=== PATIENT | female | born 1990 | race Caucasian/White ===

== ENCOUNTER → 2021-03-17 09:35 | Outpatient (CLI) | payer SELFPAY | PROVIDERS: PCP Internal Medicine; Referring Provider Internal Medicine; Visit Provider Internal Medicine | DX: R00.2 Palpitations (principal) | CPT/HCPCS: 93225; 93226 ==

== ENCOUNTER 2022-04-14 17:16 | Emergency (ER) | payer SELFPAY ==
[2022-04-14 17:18] VITALS: BP 138/88; PULSE 87; RESP 16; TEMP 36.7; O2SAT 98; BMI 30.7
--- NOTE | 2022-04-14 17:32 | NURSING ---
NO OLD EKGS
--- NOTE | 2022-04-14 18:13 | EKG12_ITS ---
Test Reason : DYSRHYTHMIA Blood Pressure : / mmHG Vent. Rate : 080 BPM Atrial Rate : 080 BPM P-R Int : 150 ms QRS Dur : 082 ms QT Int : 402 ms P-R-T Axes : 038 018 028 degrees QTc Int : 463 ms Normal sinus rhythm with sinus arrhythmia Normal ECG Confirmed by JORDAN ARROYO, KENYON ([id number]), newspaper editor managing GUME MENCHACA ([id number]) on 04/19/2022 10:46:50 AM Referred By: RODOLFO Confirmed By:ADRYAN ORTEGA MD
--- NOTE | 2022-04-14 18:14 | EDS_ITS ---
HPI History of Present Illness Chief Complaint: Palpitations Narrative Narrative: 32-year-old female states she had palpitations in the past that only lasted a day or so. Recently, since Monday she has had intermittent fast, pounding heart rate. It does not necessarily feel like it skipping a beat. She denies any nausea or vomiting. No diarrhea. No chest pain or shortness of breath. No exacerbating or alleviating factors. No leg swelling. She states it will only last for a few beats and go away. She presents because its been persistent since Monday, 2-3 days ago. PFSH PFS Allergy/AdvReac Type Severity Reaction Status Date / Time No Known Allergies Allergy Verified 04/14/22 17:18 Social History Smoking Status: Never smoker ROS ROS ED ROS Narrative Constitutional: No fever, no chills. HEENT: No sore throat. No neck pain. No loss of vision. No rhinorrhea. Cardiovascular: No chest pain. Positive palpitations, heart, pounding, and fast, brief and intermittent. No pedal edema. Respiratory: No cough, no shortness of breath. Abdominal: No abdominal pain. No nausea. No vomiting. Genitourinary: No dysuria. No hematuria. Musculoskeletal: No myalgias. No arthralgias. Neurologic: No headaches. No dizziness. No lightheadedness. Skin: No rash. No change in color. Psychiatric: No depression. No anxiety. EXAM Physical Exam Narrative Exam Narrative: Afebrile. Vital signs noted. HEENT: Normocephalic. Atraumatic. PERRL, EOMI. Neck soft and supple. No point tenderness or step off. Cardiovascular: Regular rate and rhythm. No murmurs, rubs, or gallops appreciated. Respiratory: No tachypnea. Lungs clear to auscultation bilaterally. Gastrointestinal: Abdomen soft, nontender, with normoactive bowel sounds. No rebound or guarding. Neurological: Awake. Alert. Nonfocal, nonlateralizing. Skin: No rash. Normal color. No pallor. Musculoskeletal: No pedal edema. Full range of motion extremities. Const Vital Signs: 04/14/22 17:18 Temperature 98.1 F Temperature Source Temporal Pulse Rate 87 Respiratory Rate 16 Blood Pressure 138/88 H Blood Pressure Mean 104 Pulse Ox 98 Oxygen Delivery Method Room Air MDM MDM MDM Narrative Medical decision making narrative: Comprehensive work-up was pursued. She was placed on a cafeteria monitor. EKG was obtained and interpreted by myself which shows normal sinus rhythm at [address] changes. No STEMI. There may be a sinus arrhythmia but no evidence of PVCs. Laboratory work is grossly unremarkable, normal white count, normal hemoglobin of 14.4, electrolyte panel is grossly unremarkable with a BUN of 17 and a creatinine of 0.8. LFTs are negative. Chest x-ray interpreted by myself shows no acute process, no pneumothorax or pneumonia. At this point in time, I am unsure as to the cause of her reported symptoms of pounding, fast heart rate that is fleeting. She states that someone mention depression. I do not think that she is experiencing this, and she denies any suicidal ideation. However, I did discuss with her that the new baby can always bring stress and mild anxiety. She was told that she may need to wear a Holter monitor in the future. She will follow-up with her primary care provider. She will also follow-up with her [employer] P[employer]ER. I feel she can be discharged safely home with follow-up. Return instructions were reviewed. Disposition is discharged home in stable condition. Lab Data Attestation: I reviewed the patient's lab results. Labs: Laboratory Results - last 24 hr 04/14/22 04/14/22 18:25 18:25 WBC 8.7 RBC 4.83 Hgb 14.4 Hct 43.3 MCV 89.6 MCH 29.8 MCHC 33.3 RDW Std Deviation 41.6 RDW Coeff of Max 12.5 Plt Count 173 MPV 10.3 Immature Gran % (Auto) 0.200 Neut % (Auto) 66.2 Lymph % (Auto) 27.9 Tyrrell % (Auto) 4.5 Eos % (Auto) 1.0 Baso % (Auto) 0.2 Absolute Neuts (auto) 5.7 Absolute Lymphs (auto) 2.42 Nucleated RBC % 0 Sodium 141 Potassium 3.8 Chloride 106 Carbon Dioxide 26.0 Anion Gap 9 BUN 17 Creatinine 0.81 Estim Creat Clear Calc 91.61 Est GFR (MDRD) Af Amer 104 Est GFR (MDRD) Non-Af 86 BUN/Creatinine Ratio 20.9 H Glucose 82 Calcium 9.6 Total Bilirubin 0.50 AST 19 ALT 41 Alkaline Phosphatase 68 Troponin I High Sens 13 Total Protein 7.8 Albumin 3.9 Globulin 3.9 Albumin/Globulin Ratio 1.0 Radiography Diagnostic Testing: Clinical Impression(s) from Imaging Studies Chest X-Ray 04/14/22 18:36 IMPRESSION: 1. No evidence of acute cardiopulmonary process Electronically Signed: Chris Crespo MD at 18:51 EST , Discharge Plan Triage Chief Complaint: Palpitations ED Provider: Bret Mendez Dx/Rx/DC Orders Clinical Impression: Palpitations, Pounding heartbeat Instructions: Understanding Heart Palpitations, ED Palpitations Primary Care Provider: Care Physician,No Primary Referrals: Erin Torres, [Med Staff - Bracelet And Brooch Maker] - As Needed Care Physician,No Primary [Primary Care Provider] - Disposition Disposition: Home, Self Care
[2022-04-14] MEDS: 0.9% Normal Saline 1,000 ML 1000 ML IV (18:24)
--- NOTE | 2022-04-14 18:36 | RAD_ITS ---
INDICATION: Palpitations EXAMINATION/TECHNIQUE: X-RAY - XR Chest 1 View COMPARISON: No previous relevant examinations available for comparison.. FINDINGS: LIFE-SUPPORT AND LINES: 1. None HEART AND VESSELS: The cardiac silhouette, pulmonary vasculature have normal appearance. No evidence of congestive failure. LUNGS AND PLEURAL SPACES: Lungs are clear. No focal infiltrate, consolidation or effusions. No evidence of pneumothorax. No pulmonary mass is noted. MEDIASTINUM AND HILAR REGIONS: No masses adenopathy noted. No areas of calcification. Visualized upper airway is normal in position. BONY ELEMENTS: No acute bony changes noted. RAD/Chest 1 View (Portable) IMPRESSION: 1. No evidence of acute cardiopulmonary process Electronically Signed: Chris Crespo MD at 18:51 EST ,
[2022-04-14 18:37] LABS: Absolute Lymphocyte Count 2.42 X10^3/uL (0.83-4.51); Absolute Neutrophil Count 5.7 X10^3/uL (2.0-7.7); Basophil# 0.02 X10^3/uL; Basophil% 0.2 % (0-1); Eosinophil# 0.09 X10^3/uL; Hematocrit 43.3 % (37-47); Hemoglobin 14.4 g/dL (12.0-15.0); Lymphocyte # 2.42 X10^3/ul (0.83-4.51); Lymphocyte % 27.9 % (19-41); Mean Corp Hgb Conc 33.3 g/dL (32-36); Mean Corpuscular Hgb 29.8 pg (27.0-32.0); Mean Corpuscular Volume 89.6 fL (81-99); Mean Platelet Vol. 10.3 fl (6.2-12.0); Monocyte# 0.39 X10^3/uL; Monocyte% 4.5 % (0-10); NRBC Flagged by Analyzer 0 % (0-5); Neutrophil # 5.73 X10^3/uL (2.7-7.7); Neutrophil % 66.2 % (47-70); Platelet Count 173 K/mm3 (150-450); RBC Distribution Width CV 12.5 % (11.6-14.6); RBC Distribution Width SD 41.6 fl (35.1-43.9); Red Blood Count 4.83 M/mm3 (4.2-5.4); White Blood Count 8.7 K/mm3 (4.4-11.0)
[2022-04-14 18:55] LABS: AST(SGOT) 19 U/L (15-37); Alanine Aminotransfer ALT/SGPT 41 U/L (13-56); Albumin, Serum 3.9 g/dL (3.2-5.0); Alkaline Phosphatase 68 U/L (45-117); Anion Gap 9 (5-15); BUN 17 mg/dL (7-18); BUN/Creat Ratio 20.9 RATIO (10-20); Calcium,Total 9.6 mg/dL (8.5-10.1); Chloride 106 mmol/L (98-107); Creatinine, Serum 0.81 mg/dL (0.55-1.02); EST Glomerular Filtration Rate 86 mL/min (>60); Est Glom Filt Rate - Afr Amer 104 mL/min (>60); Estimated Creatinine Clearance 91.61 ml/min; Globulin 3.9 g/dL (2.2-4.2); Glucose 82 mg/dL (74-106); Potassium 3.8 mmol/L (3.5-5.1); Protein, Total 7.8 g/dL (6.4-8.2); Sodium Level 141 mmol/L (136-145); Troponin-I HS 13 pg/mL (3.0-54.0)
[2022-04-14 19:46] VITALS: BP 105/79; PULSE 88; RESP 16; TEMP 36.6; O2SAT 100
== END 2022-04-14 19:58 | disposition home or self-care (01) ==
PROVIDERS: Emergency Provider Emergency Medicine; Visit Provider Emergency Medicine
DX: R00.2 Palpitations (principal)
CPT/HCPCS: 71045; 80053; 84484; 85025; 93005; 96360; 99284; J7030

== ENCOUNTER → 2022-04-21 | Outpatient (CLI) | payer SELFPAY ==
--- NOTE | 2022-04-21 15:02 | CT_ITS ---
STUDY: CTA CHEST REASON FOR EXAM: Female, 32 years old. PALPS RADIATION DOSAGE (If Supplied By Facility): CTDIvol = ( 11.01 ) mGy, DLP = ( 449.84 ) mGycm TECHNIQUE: The examination was performed with the intravenous administration of IV 100mL Isovue-370. Post-processing of the angiographic images was performed, with multiplanar reformation and 3D reconstruction. Individualized dose optimization techniques were used for this CT. COMPARISON: Chest x-ray April 14, 2022 FINDINGS: Normal enhancement of the main pulmonary artery and right and left pulmonary arteries. Normal enhancement of the bilateral peripheral pulmonary arteries. There is no demonstrated pulmonary embolism. Normal thoracic aorta and visualized great vessels. There is no demonstrated aortic dissection. Normal heart and pericardium. Normal mediastinum. Normal hilar regions. Normal visualized trachea and bronchi. The lungs are well expanded. Normal pulmonary parenchyma. Normal pleura. Normal chest wall structures. Normal osseous structures. Normal visualized upper abdomen. CT/CTA Chest W/WO Contrast IMPRESSION: Normal CTA chest examination, without a demonstrated pulmonary embolism or arterial dissection. Electronically Signed: Alexander Pisano MD at 17:07 EST ,
== END | disposition home or self-care (01) ==
PROVIDERS: Referring Provider Internal Medicine; Visit Provider Internal Medicine
DX: R00.2 Palpitations (principal)
CPT/HCPCS: 71275; Q9967

== ENCOUNTER → 2022-04-21 | Outpatient (CLI) | payer SELFPAY ==
[2022-04-21 13:35] LABS: D-Dimer Quantitative (DVT/PE) 0.52 FEU/ug/m (0.27-0.49)
== END | disposition home or self-care (01) ==
LOC: LABSPEC 13:10
PROVIDERS: Visit Provider Internal Medicine
DX: R00.2 Palpitations (principal)
CPT/HCPCS: 85379

== ENCOUNTER → 2022-05-03 | Outpatient (CLI) | payer SELFPAY ==
--- NOTE | 2022-05-03 07:57 | ECHOD_ITS ---
Reason For Study: PALPITATIONS Left Ventricle Normal left ventricle. The left ventricular ejection fraction is 60 %. Normal diastololic function. Right Ventricle Normal right ventricle. Atria The left and right atria are normal. Can not rule out tiny PFO. Consider repaet study with bubble contrast or BLADE if clinically indicated.=, to confirm. Mitral Valve The mitral valve is structurally normal. No prolapse or stenosis seen. Tricuspid Valve Trivial tricuspid valve insufficiency. Normal pulmonary artery pressure. Aortic Valve Normal aortic valve. Pulmonic Valve The pulmonic valve is not well visualized. Trivial eccentric pulmonic valve insufficiency. Great Vessels Normal sized aortic root. Pericardium/Pleural No pericardial effusion. MMode/2D Measurements & Calculations LVIDd: 4.6 cm IVSd: 1.1 cm Ao root diam: 3.1 cm LVIDs: 3.2 cm LVPWd: 1.1 cm RVDd: 3.2 cm FS: 30.7 % LAV(MOD-bp): 34.4 ml LA A4 area: 13.0 cm2 LA dimension(2D): 3.1 cm LAV(MOD-bp) Indexed: 17.6 ml/m2 LAV(MOD-sp2): 39.7 ml LAV(MOD-sp4): 29.9 ml RA A4 area: 12.7 cm2 Time Measurements MV dec time: 0.26 sec Doppler Measurements & Calculations MV E max alistair: 66.7 cm/sec Lat Peak E' Alistair: 14.3 cm/sec Med Peak E' Alistair: 12.9 cm/sec MV A max alistair: 72.1 cm/sec E/E' lat: 4.6 E/E' med: 5.2 MV E/A: 0.92 MV dec slope: 257.8 cm/sec2 Ao V2 max: 148.0 cm/sec LV V1 max: 106.1 cm/sec Ao max P.8 mmHg LV V1 max P.5 mmHg Ao V2 mean: 107.9 cm/sec LV V1 mean P.1 mmHg Ao mean P.1 mmHg LV V1 mean: 68.3 cm/sec Ao V2 VTI: 27.1 cm LV V1 VTI: 18.2 cm AV (velocity ratio): 0.67 PA V2 max: 95.8 cm/sec TR max alistair: 194.0 cm/sec TR max P.1 mmHg ECHO/Echo Complete Interpretation Summary The left ventricular ejection fraction is 60 %. Can not rule out tiny PFO. Consider repeat study with bubble contrast or BLADE to confirm if clinically indicated Ordering Physician: Erin Torres Referring Physician: Erin Torres Performed By: Earline Mccallum, IVY, RVT
== END | disposition home or self-care (01) ==
PROVIDERS: PCP Internal Medicine; Visit Provider Internal Medicine
DX: R00.2 Palpitations (principal)
CPT/HCPCS: 93225; 93226; 93306